=== PATIENT | male | born 1960 | race Caucasian/White ===

== ENCOUNTER 2017-05-02 06:56 | Emergency (ER) | payer BC ==
--- NOTE | 2017-05-02 07:07 | PDOC ---
History of Present Illness - General Stated Complaint: DIZZINESS History Source: Patient Exam Limitations: No Limitations - History of Present Illness Initial Comments: 05/02/17 07:06 This is a 56 yo M with PMH of [place] s/p stent 2007 on ASA and HLD, who presents to ED due to dizziness. It started yesterday at 5 pm when he was leaning down. He describes the sentation as "room spinning" and reports loosing balance. The episodes of dizziness have been a few seconds long at a time and have been illicited by head position change, last one 5 min ago. He denies h/a, n/v, numbness, paresthesia, or weakness. This has never happened before. His seasonal allergies are acting up. He denies recent viral illness. He denies chest pain, palpitations, back, jaw, arm pain, adb pain, diarrhea, constipation , dysuria. His father has a history of the same symptoms that started at 45 yo and were attributed to CNVIII shwannoma. Dr Prince 05/02/17 07:56 05/02/17 08:12 05/02/17 08:15 Past History - Travel Traveled outside of the country in the last 30 days: No Close contact w/someone who was outside of country & ill: No - Past Medical History Allergies/Adverse Reactions: Allergies Allergy/AdvReac Type Severity Reaction Status Date / Time No Known Allergies Allergy Verified 05/02/17 07:07 Home Medications: Ambulatory Orders Meclizine HCl [Antivert -] 25 mg PO QID PRN #120 tablet 05/02/17 Cardiac Disorders: Yes ([place]) Hypercholesterolemia: Yes - Surgical History Cardiac Surgery: Yes (STENT) - Psycho/Social/Smoking Cessation Hx Anxiety: No Suicidal Ideation: No Smoking Status: No Smoking History: Never smoked Number of Cigarettes Smoked Daily: 0 Review of Systems - Review of Systems Able to Perform ROS?: Yes Is the patient limited [place]er proficient: No Constitutional: No: Chills, Fever, Weakness HEENTM: No: Blurred Vision, Nose Congestion, Throat Pain, Difficulty Swallowing Respiratory: No: Cough, Shortness of Breath, Wheezing Cardiac (ROS): No: Chest Pain, Edema, Irregular Heart Rate, Lightheadedness, Palpitations, Syncope ABD/GI: No: Abdominal Distended, Constipated, Diarrhea, Nausea, Poor Appetite, Vomiting, Abdominal cramping : No: Dysuria, Flank Pain Musculoskeletal: No: Back Pain, Joint Pain, Muscle Pain, Muscle Weakness Integumentary: No: Pruritus, Rash Neurological: Yes: Unsteady Gait, Dizziness. No: Headache, Numbness, Paresthesia, Seizure, Weakness Psychiatric: No: Anxiety, Depression Endocrine: No: Excessive Sweating, Flushing Hematologic/Lymphatic: No: Anemia, Blood Clots, Easy Bleeding, Easy Bruising All Other Systems: Reviewed and Negative *Physical Exam - Physical Exam Comments: 05/02/17 08:12 GENERAL:AAOx3, NAD HEENT:PERRLA, EOMI, +[place] Hallpike, tympanic membranes clear and intact, no scleral icterus, conjunctiva clear CV:rrr, s1s2 PULM:cta b/l GI: soft, nontender, nondistended, normoactive bowel sounds, no mass NEURO:CN intact, sensation intact, strenght 5/5 in all extremities SKIN: no rashes Heart Score/ECG Review #1 ECG reviewed & interpreted by me at: 08:00 (NA 68, L axis, L ant fasic block, no st changes) Medical Decision Making - Medical Decision Making 05/02/17 08:15 Patient presents with clinical picture consistent with Menieres disease will CT scan head to r/o shwannoma, tumor. 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 It is a problem of the middle ear; your brain CT scan was normal. Please follow up with arresting gear operator ENT doctor (Dr Florian for example) You can take Meclizine when you are having episodes of vertigo You can perform the Zabrina maneyver at home which cures vertigo in a lot of cases. Return to ER if symptoms worsen, if you develop headache or numbness/weakness in your body. Zabrina Maneuver Please do this on the floor to avoid falling. Follow these steps if the problem is with your right ear: * Start by sitting on a bed. * Turn your head 45 degrees to the right. * Quickly lie back, keeping your head turned. Your shoulders should now be on the pillow, and your head should be reclined. Wait 30 seconds. * Turn your head 90 degrees to the left, without raising it. Your head will now be looking 45 degrees to the left. Wait another 30 seconds. * Turn your head and body another 90 degrees to the left, into the bed. Wait another 30 seconds. * Sit up on the left side. Follow these steps if the problem is with your left ear: * Start by sitting on a bed. * Turn your head 45 degrees to the left. * Quickly lie back, keeping your head turned. Your shoulders should now be on the pillow, and your head should be reclined. Wait 30 seconds. * Turn your head 90 degrees to the right, without raising it. Your head will now be looking 45 degrees to the right. Wait another 30 seconds. * Turn your head and body another 90 degrees to the right, into the bed. Wait another 30 seconds. * Sit up on the right side. What happens after the home Zabrina maneuver? Most people say their symptoms go away right after they do the maneuver. In some cases, it may take a few times for the procedure to work. Some people may have mild symptoms for a couple of weeks. Once your symptoms go away, there is no need to keep doing the maneuver.
[2017-05-02 07:12] VITALS: TEMP 97.5; BMI 29.0
--- NOTE | 2017-05-02 07:13 | PDOC ---
Attending Attestation - Resident Resident Name: Melvi Villeda - ED Attending Attestation I have performed the following: I have examined & evaluated the patient, The case was reviewed & discussed with the resident, I agree w/resident's findings & plan, Exceptions are as noted - HPI HPI: 56 yo M history HL, CAD presents with dizziness since yesterday. He states that it started very suddenly, felt as if the room was spinning. No headache, weakness, numbness, N/V. No prior similar symptoms. Symptoms are worse with changing the position of his head, moving from side to side or bending forward, relieved by holding his head still. Denies ear pain. - Physicial Exam PE: GENERAL: Awake, alert, and fully oriented, in no acute distress HEAD: No signs of trauma EYES: PERRLA, EOMI, sclera anicteric, conjunctiva clear ENT: Auricles normal inspection, hearing grossly normal, nares patent, oropharynx clear without exudates. Moist mucosa NECK: Normal ROM, supple, no lymphadenopathy, JVD, or masses LUNGS: Breath sounds equal, clear to auscultation bilaterally. No wheezes, and no crackles HEART: Regular rate and rhythm, normal S1 and S2, no murmurs, rubs or gallops ABDOMEN: Soft, nontender, normoactive bowel sounds. No guarding, no rebound. No masses EXTREMITIES: Normal range of motion, no edema. No clubbing or cyanosis. No cords, erythema, or tenderness NEUROLOGICAL: Cranial nerves II through XII grossly intact. Normal speech, normal gait. Deloris-Hallpike positive. SKIN: Warm, Dry, normal turgor, no rashes or lesions noted. - Medical Decision Making Pt low risk for ICH by clinical eval. Symptoms more likely due to BPPV. However , in light of his family history of intracranial mass, will obtain CTH.
[2017-05-02] MEDS ORDERED: MECLIZINE HCL 25 MG TABLET (FP) PO ONE (07:18)
[2017-05-02] MEDS ORDERED: MECLIZINE HCL 25 MG TABLET (FP) ONE (07:51)
[2017-05-02 08:39] VITALS: BP 136/74; PULSE 70
--- NOTE | 2017-05-03 10:53 | EKG ---
Test Reason : Blood Pressure : / mmHG Vent. Rate : 068 BPM Atrial Rate : 068 BPM P-R Int : 170 ms QRS Dur : 094 ms QT Int : 388 ms P-R-T Axes : 025 -56 027 degrees QTc Int : 412 ms NORMAL SINUS RHYTHM LEFT ANTERIOR FASCICULAR BLOCK ABNORMAL ECG WHEN COMPARED WITH ECG OF 21-APR-2012 14:42, NO SIGNIFICANT CHANGE WAS FOUND Confirmed by KAREN MACDONALD MD ([id number]) on 05/03/2017 10:53:08 AM Referred By: Confirmed By:KAREN MACDONALD MD
== END 2017-05-02 08:38 | disposition home or self-care (01) ==
LOC: JER 06:56
DX: H81.10 Benign paroxysmal vertigo, unspecified ear (principal); I25.2 Old myocardial infarction; E78.5 Hyperlipidemia, unspecified; Z95.5 Presence of coronary angioplasty implant and graft; Z79.82 Long term (current) use of aspirin
CPT/HCPCS: 70450-TC; 93005; 93010; 99282-25

== ENCOUNTER 2019-03-14 08:26 | Emergency (ER) | payer BC ==
[2019-03-14 08:40] VITALS: BP 135/81; PULSE 72; TEMP 97.7; BMI 29.0
--- NOTE | 2019-03-14 09:07 | PDOC ---
History of Present Illness - General Chief Complaint: Back Pain Stated Complaint: LOWER BACK PAIN / PINCHED NERVE Time Seen by Provider: 03/14/19 08:55 History Source: Patient Exam Limitations: No Limitations - History of Present Illness Initial Comments: 03/14/19 09:07 Patient states is here for chronic upper back pain. 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 And states had onset of pain approximately 3 months ago to his upper back. States comes and goes, will is worse with movement, but now has progressed so where he even turns in bed has worsened pain to his scapular area. Denies fevers, no cough, no chest pain or palpitations. Has had no rashes or lesions. Has been using ibuprofen with good resolved but concerned because he 's had to consistently take it over the past few weeks. Is not had thorough physical in many years. 03/14/19 09:08 Occurred: reports: just prior to arrival, yesterday Severity: reports: mild, moderate Pain Location: reports: back (upper/thoracic, worse on the right than the left) Method of Injury: Yes: unknown. No: assault, fall Modifying Factors: improves with: None Loss of Consciousness: no loss of consciousness Associated Symptoms (Fall): denies symptoms Past History - Travel Traveled outside of the country in the last 30 days: No Close contact w/someone who was outside of country & ill: No - Past Medical History Allergies/Adverse Reactions: Allergies Allergy/AdvReac Type Severity Reaction Status Date / Time No Known Allergies Allergy Verified 03/14/19 08:40 Home Medications: Ambulatory Orders Cyclobenzaprine HCl 10 mg PO Q8H PRN #14 tablet 03/14/19 Naproxen [Naprosyn -] 500 mg PO BID #30 tablet 03/14/19 Cardiac Disorders: Yes ([place], stent) COPD: No Hypercholesterolemia: Yes - Surgical History Cardiac Surgery: Yes (STENT) - Suicide/Smoking/Psychosocial Hx Smoking Status: No Smoking History: Never smoked Have you smoked in the past 12 months: No Number of Cigarettes Smoked Daily: 0 Information on smoking cessation initiated: No Hx Alcohol Use: No Drug/Substance Use Hx: No Substance Use Type: None Review of Systems - Review of Systems Able to Perform ROS?: Yes Is the patient limited [place] proficient: Yes Constitutional: Yes: Symptoms Reported, See HPI, Malaise. No: Fever HEENTM: Yes: See HPI. No: Symptoms Reported Respiratory: Yes: See HPI. No: Symptoms reported, Cough ABD/GI: Yes: See HPI. No: Symptoms Reported Musculoskeletal: Yes: Symptoms Reported, See HPI, Back Pain, Muscle Pain All Other Systems: Reviewed and Negative *Physical Exam - Vital Signs Last Vital Signs Temp Pulse Resp BP Pulse Ox 97.7 F 72 19 135/81 98 03/14/19 08:39 03/14/19 08:39 03/14/19 08:39 03/14/19 08:39 03/14/19 08:39 - Physical Exam General Appearance: Yes: Nourished, Appropriately Dressed, Apparent Distress, Mild Distress HEENT: positive: JACEY, Normal ENT Inspection, TMs Normal, Pharynx Normal Neck: positive: Supple. negative: Tender, Trachea midline Respiratory/Chest: positive: Chest Tender (posterior chest wall tenderness with mild knotting nd atensio to paravertebral muscles . Pain is reproduced with abduction of both arms, and pushing against resistance. Has no pain reproduced with deep inspiration, and has no true point tenderness along any rib border.), Lungs Clear, Normal Breath Sounds Gastrointestinal/Abdominal: positive: Normal Bowel Sounds, Soft. negative: Tender, Distended, Guarding, Rebound, Hepatomegaly, Spleenomegaly Musculoskeletal: positive: Normal Inspection. 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 We'll treat with NSAIDs and cyclobenzaprine and have follow-up with PMD for possible rehabilitation *DC/Admit/Observation/Transfer Diagnosis at time of Disposition: Muscle strain, shoulder region Qualifiers: Encounter type: initial encounter Laterality: right Qualified Code(s): S46.911A - Strain of unspecified muscle, fascia and tendon at shoulder and upper arm level, right arm, initial encounter - Discharge Dispostion Disposition: HOME Condition at time of disposition: Stable Decision to Admit order: No - Prescriptions Prescriptions: Cyclobenzaprine HCl 10 mg PO Q8H PRN #14 tablet PRN Reason: spasm Naproxen [Naprosyn -] 500 mg PO BID #30 tablet - Referrals Referrals: Maldonado Perez MD [Staff Physician] - - Patient Instructions Printed Discharge Instructions: DI for Muscle Strain Additional Instructions: Rest, no heavy lifting or exercise until pain is resolved Hot soaks to neck and low back as often as possible/hot showers or Jacuzzis No massage or therapy until spasm is gone Continue Naprosyn 500 mg tablet, 1 tablet every 8 hours for the next 3 days then as needed for pain and swelling Cyclobenzaprine 1-10mg every 8 hours as needed for spasm If not significant improvement within 24 hours with medication and rest regime, followup with private physician for change in medications and /or therapy. - Post Discharge Activity Forms/Work/School Notes: Back to Work
== END 2019-03-14 10:32 | disposition home or self-care (01) ==
LOC: JERFT 08:26
DX: S46.911A Strain of unspecified muscle, fascia and tendon at shoulder and upper arm level, right arm, initial encounter (principal); X58.XXXA Exposure to other specified factors, initial encounter; Y93.89 Activity, other specified; Y92.89 Other specified places as the place of occurrence of the external cause; Z95.5 Presence of coronary angioplasty implant and graft; E78.00 Pure hypercholesterolemia, unspecified; I25.2 Old myocardial infarction
CPT/HCPCS: 71046-TC-FY; 99281-25

== ENCOUNTER 2019-05-25 08:52 | Emergency (ER) | payer BC ==
[2019-05-25 08:56] VITALS: BP 133/78; PULSE 75; TEMP 97.8; BMI 29.0
[2019-05-25] MEDS ORDERED: NEOMYCIN/POLYMYXN/HC OTIC SUSPENSION 10 ML BOTTLE AS ONE (09:09)
--- NOTE | 2019-05-25 09:09 | PDOC ---
History of Present Illness - General Chief Complaint: Ear Problem Stated Complaint: EARACHE Time Seen by Provider: 05/25/19 09:03 History Source: Patient - History of Present Illness Initial Comments: 05/25/19 09:13 Onset of left ear pain for 2 days. States suffers frequently from ear infections and had multiple otitis media as a child. States left ear and pinna started to hurt yesterday and is progressively worsened. Denies drainage from site Timing/Duration: reports: getting worse Severity: reports: mild, moderate Associated Symptoms: reports: denies symptoms, earache, nasal congestion. denies: fever/chills Past History - Travel Traveled outside of the country in the last 30 days: No Close contact w/someone who was outside of country & ill: No - Past Medical History Allergies/Adverse Reactions: Allergies Allergy/AdvReac Type Severity Reaction Status Date / Time No Known Allergies Allergy Verified 05/25/19 08:53 Home Medications: Ambulatory Orders Neomycin/Polymyxn/Hc [Cortisporin Otic Suspenstion -] 5 drop Q6HPO #1 drops 05/25/19 Cardiac Disorders: Yes ([place], stent) COPD: No Hypercholesterolemia: Yes - Surgical History Cardiac Surgery: Yes (STENT) - Suicide/Smoking/Psychosocial Hx Smoking Status: No Smoking History: Never smoked Have you smoked in the past 12 months: No Number of Cigarettes Smoked Daily: 0 Hx Alcohol Use: No Drug/Substance Use Hx: No Substance Use Type: None Respiratory Specific PMHX - Complaint Specific PMHX Angina: No Bronchitis: No Pneumonia: No Pulmonary Embolus: No TB (Tuberculosis): No Review of Systems - Review of Systems Able to Perform ROS?: Yes Is the patient limited [place]ali proficient: Yes Constitutional: Yes: See HPI. No: Symptoms Reported, Fever, Malaise HEENTM: Yes: Symptoms Reported, See HPI, Ear Pain. No: Ear Discharge Respiratory: Yes: Symptoms reported, See HPI, Cough ABD/GI: No: Symptoms Reported Integumentary: No: Symptoms Reported All Other Systems: Reviewed and Negative *Physical Exam - Vital Signs Last Vital Signs Temp Pulse Resp BP Pulse Ox 97.8 F 75 18 133/78 99 05/25/19 08:55 05/25/19 08:55 05/25/19 08:55 05/25/19 08:55 05/25/19 08:55 - Physical Exam General Appearance: Yes: Nourished, Appropriately Dressed, Apparent Distress, Mild Distress HEENT: positive: JACEY, Normal ENT Inspection. negative: TMs Normal (right TM intact however scarring noted. Left TM is dulled with swelling to canal and difficult to see landmarks. ) Neck: positive: Supple. 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, Fully Oriented, Alert, Normal Mood/ Affect, Normal Response Progress Note - Progress Note Progress Note: otitis externa- will treat with Cortisporin *DC/Admit/Observation/Transfer Diagnosis at time of Disposition: Otitis externa - Discharge Dispostion Disposition: HOME Condition at time of disposition: Stable - Prescriptions Prescriptions: Neomycin/Polymyxn/Hc [Cortisporin Otic Suspenstion -] 5 drop Q6HPO #1 drops - Referrals - Patient Instructions Printed Discharge Instructions: DI for Otitis Externa Additional Instructions: Rest, lots of fluids; water, teas, soups Hot wet soaks to ear/hot packs may help relieve some pain May use [id number] anesthetic drops to ears to help relieve some pain Avoid getting water in ear, may use alcohol drops to help dry up any water retained in ears Severe using earplugs when swimming to avoid any water retention Continue ibuprofen or Tylenol for pain and fevers Cortisporin otic solution 3-5 drops 3 times a day for 5 days followup with private physician / ENT doctor in 2-3 days Return to emergency department or see private physician immediately for swelling , redness, from ears, or fevers, - Post Discharge Activity Forms/Work/School Notes: Back to Work
[2019-05-25] MEDS ORDERED: NEOMYCIN/POLYMYXN/HC OTIC SOLUTION 10 ML BOTTLE ONE (09:12)
== END 2019-05-25 10:38 | disposition home or self-care (01) ==
LOC: JERFT 08:52
DX: H60.502 Unspecified acute noninfective otitis externa, left ear (principal)
CPT/HCPCS: 99281-25

== ENCOUNTER 2021-08-04 08:39 | Emergency (ER) | payer OTHER, BC ==
[2021-08-04 08:47] VITALS: BP 120/77; PULSE 70; TEMP 98
[2021-08-04] MEDS ORDERED: IBUPROFEN 600 MG TABLET (FP) PO ONE ×2 (09:06→09:09)
[2021-08-04] MEDS ORDERED: DIPHTH,PERTUSS(ACELL),TET 0.5 ML DISP.SYRIN IM ONE ×2 (09:06→09:09)
== END 2021-08-04 10:02 | disposition home or self-care (01) ==
LOC: JERFT 08:39
PROC: 3E0234Z Introduction of Serum, Toxoid and Vaccine into Muscle, Percutaneous Approach (ICD-10-PCS; principal; 2021-08-04)
DX: S69.92XA Unspecified injury of left wrist, hand and finger(s), initial encounter (principal); X50.0XXA Overexertion from strenuous movement or load, initial encounter; W22.8XXA Striking against or struck by other objects, initial encounter
CPT/HCPCS: 73130-TC-LT-FY; 90715; 99284-25

== ENCOUNTER 2023-02-07 08:54 | Emergency (ER) | payer OTHER, BC ==
[2023-02-07 09:12] VITALS: BP 141/88; PULSE 65; RESP 16; TEMP 97.9; BMI 30.5
== END 2023-02-07 11:04 | disposition home or self-care (01) ==
LOC: JERFT 08:54
PROC: 0HQ0XZZ Repair Scalp Skin, External Approach (ICD-10-PCS; principal; 2023-02-07)
DX: S01.01XA Laceration without foreign body of scalp, initial encounter (principal); S09.90XA Unspecified injury of head, initial encounter; W22.09XA Striking against other stationary object, initial encounter; Y99.0 Civilian activity done for income or pay
CPT/HCPCS: 99282-25

== ENCOUNTER 2023-10-23 08:32 | Emergency (ER) | payer BC ==
[2023-10-23 08:40] VITALS: BP 118/68; PULSE 63; RESP 18; TEMP 97.7
[2023-10-23] MEDS ORDERED: SODIUM CHLORIDE 0.9% 500 ML INFUS.BAG IV ONE (09:22)
[2023-10-23 09:46] LABS: BASO % 0.6 % (0-2.0); EOS % 2.7 % (0-4.5); HEMOGLOBIN 15.6 GM/dL (11.7-16.9); LYMPH % 22.9 % (8-40); MCH 36.3 pg (25.7-33.7); MCHC 34.6 g/dl (32.0-35.9); MEAN CELL VOLUME 104.7 fl (80-96); MEAN PLT VOLUME 7.6 fl (7.5-11.1); MONO % 8.9 % (3.8-10.2); NEUT % 64.9 % (42.8-82.8); PLATELET COUNT 199 10^3/uL (134-434); RBC 4.29 M/mm3 (4.00-5.60); RDW 12.4 % (11.9-15.9); WHITE BLOOD COUNT 7.6 K/mm3 (4.0-10.0)
[2023-10-23 10:17] LABS: POTASSIUM 4.1 mmol/L (3.5-5.1)
[2023-10-23 10:19] LABS: BLOOD UREA NITROGEN 16.8 mg/dL (7-18); MAGNESIUM 2.3 mg/dL (1.8-2.4)
[2023-10-23 10:24] LABS: BILIRUBIN,TOTAL 0.6 mg/dL (0.2-1); TOT PROT 7.9 g/dl (6.4-8.2)
== END 2023-10-23 13:08 | disposition home or self-care (01) ==
LOC: JER 08:32
DX: R19.7 Diarrhea, unspecified (principal); Z20.822 Contact with and (suspected) exposure to COVID-19
CPT/HCPCS: 0241U-QW; 36415; 80053; 83735; 85025; 99283-25